=== PATIENT | female | born 1965 | race American Indian/Alaskan Native ===

== ENCOUNTER 2021-07-19 09:55 | Emergency (ER) | payer BC ==
[2021-07-19 11:06] VITALS: BP 154/76
[2021-07-19] MEDS ORDERED: PENICILLIN G BENZATHINE 1.2 MILLION UNIT/2 ML INJ IM ONE (11:13)
[2021-07-19] MEDS ORDERED: IBUPROFEN 800 MG TAB PO ONE (11:13)
[2021-07-19] MEDS ORDERED: dexAMETHasone 4 MG/ML VIAL IM ONE (11:13)
--- NOTE | 2021-07-19 11:14 | Emergency Department Report ---
ED ENT HPI - General Chief complaint: Dental/Oral Stated complaint: LT SIDE OF FACE SWOLLEN Time Seen by Provider: 07/19/21 11:12 Source: patient Mode of arrival: Ambulatory Limitations: No Limitations - History of Present Illness Initial comments: Patient is a 55-year-old female that comes to the emergency room complaining of left-sided facial swelling and dental pain. She reports lower left etiology of the pain. Patient has diffuse caries on exam. No trismus. ABCs intact controlling secretions MD complaint: tooth pain -: Gradual, days(s) Severity: moderate Severity scale (0 -10): 5 Quality: aching Consistency: constant Improves with: none Worsens with: none Context- Dental: history of dental caries Associated Symptoms: toothache. denies: fever, cough, gum swelling, pain with swallowing, sore throat, tinnitus, hearing loss, discharge from ear, rhinorrhea - Related Data Previous Rx's Medication Instructions Recorded Last Taken Type Amoxicillin [Trimox CAP] 500 mg PO BID #20 capsule 07/19/21 Unknown Rx Allergies Allergy/AdvReac Type Severity Reaction Status Date / Time No Known Allergies Allergy Unverified 07/19/21 11:03 ED Dental HPI - General Chief complaint: Dental/Oral Stated complaint: LT SIDE OF FACE SWOLLEN Time Seen by Provider: 07/19/21 11:12 Source: patient Mode of arrival: Ambulatory Limitations: No Limitations - Related Data Previous Rx's Medication Instructions Recorded Last Taken Type Amoxicillin [Trimox CAP] 500 mg PO BID #20 capsule 07/19/21 Unknown Rx Allergies Allergy/AdvReac Type Severity Reaction Status Date / Time No Known Allergies Allergy Unverified 07/19/21 11:03 ED Review of Systems ROS: Stated complaint: LT SIDE OF FACE SWOLLEN Other details as noted in HPI Comment: All other systems reviewed and negative ED Past Medical Hx - Past Medical History Previous Medical History?: No - Surgical History Past Surgical History?: No - Family History Family history: no significant - Social History Smoking Status: Current Every Day Smoker Substance Use Type: None - Medications Home Medications: Home Medications Medication Instructions Recorded Confirmed Last Taken Type Amoxicillin [Trimox CAP] 500 mg PO BID #20 capsule 07/19/21 Unknown Rx ED Physical Exam - General Limitations: No Limitations General appearance: alert, in no apparent distress - Head Head exam: Present: atraumatic, normocephalic - Eye Eye exam: Present: normal appearance - ENT ENT exam: Present: mucous membranes moist - Expanded ENT Exam Expanded Mouth exam: Present: normal external inspection. Absent: drooling, trismus, muffled voice, tongue normal, tongue elevation, laceration Teeth exam: Present: dental caries (Diffuse) 1 - Other (Patient reports this is the etiology of her pain) - Neck Neck exam: Present: normal inspection - Respiratory Respiratory exam: Present: normal lung sounds bilaterally. Absent: respiratory distress - Cardiovascular Cardiovascular Exam: Present: regular rate, normal rhythm. Absent: systolic murmur, diastolic murmur, rubs, gallop - GI/Abdominal GI/Abdominal exam: Present: soft, normal bowel sounds - Extremities Exam Extremities exam: Present: normal inspection - Back Exam Back exam: Present: normal inspection - Neurological Exam Neurological exam: Present: alert, oriented X3 - Psychiatric Psychiatric exam: Present: normal affect, normal mood - Skin Skin exam: Present: warm, dry, intact, normal color. Absent: rash ED Course Vital Signs 07/19/21 07/19/21 11:03 11:38 Temperature 98.2 F Pulse Rate 94 H Respiratory 18 18 Rate Blood Pressure 154/76 [Right] O2 Sat by Pulse 96 Oximetry ED Medical Decision Making - Medical Decision Making Vital Signs 07/19/21 07/19/21 11:03 11:38 Temperature 98.2 F Pulse Rate 94 H Respiratory 18 18 Rate Blood Pressure 154/76 [Right] O2 Sat by Pulse 96 Oximetry Patient medicated with IM penicillin and Decadron. Given Motrin for pain. Patient has no Ludewig's, abscess, trismus, she is taking p.o., she is controlling secretions. She has no fever or chills. Patient being discharged home with discharge plan of care including diet, activity, medications and follow-up. She verbalizes understanding of plan of care. She knows she needs to see a dentist for definitive care. - Differential Diagnosis Dental pain Critical care attestation.: If time is entered above; I have spent that time in minutes in the direct care of this critically ill patient, excluding procedure time. ED Disposition Clinical Impression: Dental caries, Pain, dental Disposition: 01 HOME / SELF CARE / HOMELESS Is pt being admited?: No Does the pt Need Aspirin: No Condition: Stable Instructions: Acute Pain, Adult Additional Instructions: [id number] Motrin and Tylenol for pain. Antibiotic as ordered today. Follow-up with dentist as soon as possible for definitive care. Overdoing today will only temporarily resolve the problem Stay well-hydrated with water Referrals: [facility] [Outside] - 3-[address] [facility] [place] [Outside] - 3-5 Days Time of Disposition: 11:58
== END 2021-07-19 12:42 | disposition home or self-care (01) ==
LOC: ED 09:55
DX: K02.9 Dental caries, unspecified (principal); Z79.899 Other long term (current) drug therapy
CPT/HCPCS: 96372; 99282; J0561; J1100